=== PATIENT | female | born 1960 | race Caucasian/White ===

== ENCOUNTER 2016-09-12 07:57 | Day surgery (SDC) | payer OTHER ==
[2016-09-05 14:52] VITALS: BMI 35.5
[2016-09-12] MEDS ORDERED: ceFAZolin SODIUM 1 GM VIAL ONE ×2 (10:34→10:35)
[2016-09-12] MEDS ORDERED: ONDANSETRON 4 MG/2 ML VIAL ONE ×2 (10:35→11:11)
[2016-09-12] MEDS ORDERED: LIDOCAINE HCL/PF 2% SDV 5ML VIAL ONE (10:35)
[2016-09-12] MEDS ORDERED: MIDAZOLAM HCL 2 MG/2 ML SINGLE DOSE VIAL ONE ×2 (10:35→11:23)
[2016-09-12] MEDS ORDERED: PROPOFOL 20 ML ONE ×2 (10:35)
[2016-09-12] MEDS ORDERED: LIDOCAINE HCL 2% JELLY (5 ML/TUBE) ONE (10:35)
[2016-09-12] MEDS ORDERED: ePHEDrine SULFATE 50 MG/1 ML AMPULE ONE (11:00)
[2016-09-12] MEDS ORDERED: DEXAMETHASONE SOD PHOSPHATE 4 MG/1 ML VIAL ONE (11:11)
[2016-09-12] MEDS ORDERED: LIDOCAINE 1%-EPI 1:100,000 30 ML MDV IJ ONE (11:14)
[2016-09-12] MEDS ORDERED: DESFLURANE GAS 240 ML BOTTLE IH ONE (11:44)
[2016-09-12] MEDS ORDERED: SUCCINYLCHOLINE CHLORIDE 200 MG/10 ML VIAL ONE (12:58)
[2016-09-12] MEDS ORDERED: GUM MASTIC/STORAX/MSAL/ALCOHOL 1 DRP DROPSBTL MC ONE (13:39)
[2016-09-12] MEDS ORDERED: LIDOCAINE 1%/EPI 1:100000 (50 ML MULTI DOSE VIAL) INF ONE (14:10)
[2016-09-12] MEDS ORDERED: ONDANSETRON 4 MG/2 ML VIAL IVPUSH PRN (14:17)
[2016-09-12] MEDS ORDERED: oxyCODONE HCL 5 MG TABLET PO PRN ×2 (14:17)
[2016-09-12] MEDS ORDERED: PROMETHAZINE HCL 25 MG/1 ML VIAL IVPUSH PRN (14:17)
[2016-09-12] MEDS ORDERED: LACTATED RINGERS SOLUTION 1,000 ML IV SCH (14:30)
[2016-09-12] MEDS ORDERED: oxyCODONE HCL 5 MG TABLET ONE (16:40)
[2016-09-12] MEDS ORDERED: oxyCODONE HCL 5 MG TABLET PO ONE (16:40)
[2016-09-12 18:57] VITALS: BP 124/65; PULSE 82; TEMP 98.4
--- NOTE | 2016-09-15 15:40 | OP ---
DATE OF OPERATION: [birth year]16 OPERATIVE PROCEDURE: 1. Left breast reconstruction with other technique. 2. Right breast reduction. 3. Right revision of reconstruction, number 193.80. 4. Left nipple areolar reconstruction. 5. Abdominal exploration with extensive excision of ceroma cavity and secondary procedure. SURGEON: Austyn Koenig MD PATTERNMAKER METAL SURGEON: Rivka Roca PA-C PREOPERATIVE DIAGNOSIS: 1. Bilateral acquired chest wall deformity status post bilateral mastectomy. 2. Personal history of breast carcinoma. 3. Asymmetry of reconstructed chest wall. 4. History of breast cancer. POSTOPERATIVE DIAGNOS 1. Bilateral acquired chest wall deformity status post bilateral mastectomy. 2. Personal history of breast carcinoma. 3. Asymmetry of reconstructed chest wall. 4. History of breast cancer. OPERATIVE INDICATION: Patient is a young woman who underwent mastectomy, and the above procedures were required in order to correct the significant deformity. The abdomen has had significant drainage and a collection of fluid, which has been established and drained many times as an outpatient, now requires surgical excision of the entire cavity in the abdominal area. She also required the above procedures for breast reconstruction after mastectomy. The risks and benefits of surgical versus nonsurgical alternatives as well as material complications were described to the patient on multiple occasions preoperatively. She agreed to the planned procedure. OPERATIVE PROCEDURE IN DETAIL: Patient was taken to the operating room and after induction of general anesthesia in the supine position, both arms were extended and padded. Venodyne boots were placed. The entire abdomen as well as the chest and flanks were prepped with ChloraPrep solution over the entire extent. The abdomen showed a large protuberance from significant swelling and fluid. Operative procedure in detail as above included prepping and draping in the usual fashion. After a timeout, attention was turned to the abdomen. The lower incision, which had been made previously for breast reconstruction was injected with 1% local lidocaine anesthesia with 1:200,000 epinephrine. After allowing topical anesthesia and hemostasis, an incision was made down through the skin to the subcutaneous tissue down to the deep area just above the muscle where a large amount of scar tissue was seen in the midline. This was carried through the subcutaneous tissue with electrocautery and then down to the underlying deep layers. An incision was made into the cavity, and a large amount of bloody serosanguineous fluid was extruded. Approximately 300 mL of material was removed, and then the wounds were copiously irrigated. The wounds were enlarged and the incision expanded in order to obtain complete exposure to this large cavity in the abdominal wall. At this point, using the electrocautery, a dissection of the capsule itself was carried out, removing the posterior capsule over the rectus sheath in its entirety up to and above the umbilicus from all areas of the right and left side of the lower abdomen. A large amount of material was removed and sent for pathologic diagnosis. Copious irrigation with triple-antibiotic solution. Hemostasis was obtained. A large raw surface was seen, and two large 19 Jerome drains were placed through a separate stab wound laterally. At this point, an advancement flap closure was carried out, taking large bites of the abdominal wall from underneath. A 0 Vicryl suture was used to approximate the deep tissues, suturing the superior flap down to the rectus sheath remnant. This was advanced from superior to inferior, suturing the abdominal wall down and then down to the lower incision. An incision was closed using 2-0 Vicryl sutures in the deep Emanuel's fascia, 3-0 Monocryl in a deep dermal fashion and a subcuticular suture with 4-0 Biosyn was carried out. These drains were placed on suction, and attention was turned to the chest wall. At this point, the mastectomy scar was injected with 1% local lidocaine anesthesia, 1:200,000 epinephrine on the left breast, and all areas in the right breast were also injected from the markings, which were made in the standing position for breast reduction on the right side. At this point, an incision was made in the flank area on the right and left sides for subcutaneous tissue harvest for reconstruction. Tissue was then harvested en bloc from the deep areas along the abdominal wall. This tissue was transferred to the back table for preparation, washing and cleansing in order to place into the chest wall. Incision was made around a number 42 nipple areolar cutter on the right breast and according to the reduction pattern, blocks of tissue were removed and advanced and closed upon themselves for reduction in the usual fashion. Attention was then turned to the left chest wall, a double opposing tab, nipple areolar reconstruction was incised down through the skin into the subcutaneous tissue and then advancement flaps were created, suturing the tissues together. Then the left nipple areolar reconstruction was then fashioned with 3-0 Monocryl suture on the deep tissue, 3-0 on the donor site in order to close and advance in upon itself, and then multiple sutures in layers carried out to create the nipple areolar complex. Attention was turned back to the right chest wall. Tissue was then transferred to the right chest wall for reconstruction with other technique in the superior, medial, central and lateral portions of the right breast. The tissues were advanced and closed in V-shape fashion, and a Ramírez pattern reduction. These were advanced to close upon themselves with 3-0 Monocryl in the deep tissue, 4-0 Biosyn in a subcuticular fashion. All wounds were dressed sterilely with Mastisol and a compression dressing. She was awakened, extubated and transferred to the recovery room in a surgery bra and an abdominal binder on the abdomen. She tolerated the procedure well. AUSTYN KOENIG M.D. [id number]
--- NOTE | 2016-09-16 11:43 | PATH ---
Surgical Pathology Report Patient Name: AISHA BEATTY [facility]. Rec. #: [id number] /Age/Gender: 1960 (Age: 56) / F Account: [id number] Location: COUNT INCLUDES THE [facility] Taken: 09/12/2016 Received: 09/12/2016 Reported: 09/16/2016 Physicians: Nic Koenig Specimen(s) Received EXTENSIVE SEROMA CAPSULE Clinical History Acquired chest wall deformity Extensive abdominal seroma Final Diagnosis SOFT TISSUE, ABDOMEN, EXCISION: FIBROUS TISSUE WITH ATTACHED HEMORRHAGIC AND FIBRINOUS MATERIAL CONSISTENT WITH SEROMA WALL, AND ATTACHED ADIPOSE TISSUE. Comment: See also [id number]. Electronically Signed Martir Mccall M.D. Gross Description Received in formalin labeled "extensive seroma capsule," is an 18.0 x 13.5 x 0.8 cm aggregate of multiple villa, irregular portions of fibrous tissue with focal attached adipose tissue, consistent with a fibrous capsule. Lead Nuclear Medicine Technologist sections are submitted in 4 cassettes. /09/15/2016 saudi/09/15/2016
== END 2016-09-12 19:00 | disposition home or self-care (01) ==
LOC: FASU 07:57
PROVIDERS: ATTEND Plastic Surgery
PROC: 0HBT0ZZ Excision of Right Breast, Open Approach (ICD-10-PCS; 2016-09-12)
PROC: 0H97XZX Drainage of Abdomen Skin, External Approach, Diagnostic (ICD-10-PCS; 2016-09-12)
PROC: 0HRU07Z Replacement of Left Breast with Autologous Tissue Substitute, Open Approach (ICD-10-PCS; principal; 2016-09-12 11:13)
PROC: 0HRX07Z Replacement of Left Nipple with Autologous Tissue Substitute, Open Approach (ICD-10-PCS; 2016-09-12 11:13)
PROC: 0HUT07Z Supplement Right Breast with Autologous Tissue Substitute, Open Approach (ICD-10-PCS; 2016-09-12 11:13)
DX: M95.4 Acquired deformity of chest and rib (principal); Z85.3 Personal history of malignant neoplasm of breast; Z90.13 Acquired absence of bilateral breasts and nipples; N65.1 Disproportion of reconstructed breast; L76.34 Postprocedural seroma of skin and subcutaneous tissue following other procedure; Y83.8 Other surgical procedures as the cause of abnormal reaction of the patient, or of later complication, without mention of misadventure at the time of the procedure
CPT/HCPCS: 88304-TC; 94760